=== PATIENT | male | born 1955 | race African-American/Black ===

== ENCOUNTER → 2020-07-13 | Outpatient (CLI) | payer OTHER ==
--- NOTE | 2020-07-13 17:44 | RADIOLOGY REPORT (SQ) ---
EXAM DESCRIPTION: MRI IAC WWO IMAGES COMPLETED DATE/TIME: 07/13/2020 9:47 am REASON FOR STUDY: H90.5 UNSPECIFIED SENSORINEURAL HEALING LOSS H90.5 UNSPECIFIED SENSORINEURAL HEA RING LOSS COMPARISON: None. TECHNIQUE: Multiplanar imaging includes non-contrasted T1, T2, FLAIR, diffusion with ADC map and pos t gadolinium contrast sequences. Additional thin slice images with and without gadolinium contrast a cquired in the posterior fossa. Images stored on PACS. CONTRAST TYPE AND DOSE: 20 mL Prohance. RENAL FUNCTION: Not indicated. ACR Type II contrast agent associated with few, if any, unconfounded cases of NSF LIMITATIONS: None. FINDINGS: ANATOMY: No anomalies. Normal vascular flow voids. Pituitary fossa normal. CSF SPACES: Normal in size and contour. CEREBRUM: Scattered areas signal alteration in the white matter on FLAIR imaging typical of microvasc ular ischemia. No hemorrhage. No mass effect. No enhancement. POSTERIOR FOSSA: No signal alteration. No hemorrhage. No edema, masses or mass effect. Internal drake tory canals, cerebello-pontine angles, mastoids normal. No enhancing lesions. Detailed imaging of the 5th, 7th, and 8th nerves and [place] within normal limits. DIFFUSION IMAGING: Negative for acute or sub-acute infarction. ORBITS: No masses. Globes normal. PARANASAL SINUSES: No fluid levels. Mucosa normal. OTHER: No other significant finding. IMPRESSION: No CP angle mass or other abnormality in the posterior fossa. Mild microvascular ischemia. TECHNICAL DOCUMENTATION: JOB ID: [id number] [employer]- All Rights Reserved Reading location - IP/workstation name: [email or web address]
== END ==
LOC: RAD 08:17
PROVIDERS: ATTEND Otolaryngology
DX: H90.5 Unspecified sensorineural hearing loss (principal)
CPT/HCPCS: 82565; 70553; A9576